=== PATIENT | male | born 1990 | race African-American/Black ===

== ENCOUNTER 2019-09-14 17:53 | Emergency (ER) | payer BC, OTHER ==
[~2019-09-14] VITALS: Ht 190.5 cm; Wt 65.8 kg
[2019-09-14 18:39] LABS: ALBUMIN 4.2 g/dL (3.4-5.0); CREATININE 1.2 mg/dL (0.7-1.3); POTASSIUM 3.5 mmol/L (3.5-5.1); TOTAL BILIRUBIN 0.3 mg/dL (<0.1-1.0); TOTAL PROTEIN 8.3 g/dL (6.4-8.2)
[2019-09-14 18:41] LABS: HEMATOCRIT 47.1 % (42.0-52.0); MCH 31.4 pg (26.0-34.0); MCHC 33.9 g/dL (28.0-37.0); MCV 92.6 fL (80.0-100.0); PLATELET COUNT 138 thou/uL (150-400); RBC 5.08 mil/uL (4.50-6.00); RDW 13.4 % (10.5-14.5); WBC 2.4 thou/uL (4.0-11.0)
[2019-09-14 18:45] LABS: CALCIUM 9.3 mg/dL (8.5-10.1)
[2019-09-14] MEDS ORDERED: ZOFRAN ODT4 MG DISSOLVE (18:52)
[2019-09-14 19:11] VITALS: BP 133/78
== END 2019-09-14 19:13 | disposition home or self-care (01) ==
LOC: ER 17:53
PROVIDERS: Nurse Practitioner
DX: J10.1 Influenza due to other identified influenza virus with other respiratory manifestations (principal); R11.2 Nausea with vomiting, unspecified

== ENCOUNTER 2020-03-06 01:53 | Emergency (ER) | payer BC, OTHER ==
[~2020-03-06] VITALS: Ht 190.5 cm; Wt 65.8 kg
[~2020-03-06 01:53] MED LIST: ZOFRAN ODT4 MG DISSOLVE
[2020-03-06] MEDS ORDERED: NORCO 5-325 TA1 EAC1 PO (02:44)
[2020-03-06 02:50] VITALS: BP 108/60
== END 2020-03-06 03:06 | disposition home or self-care (01) ==
LOC: ER 01:53
DX: S93.492A Sprain of other ligament of left ankle, initial encounter (principal); V00.131A Fall from skateboard, initial encounter; Y93.51 Activity, roller skating (inline) and skateboarding; Y92.89 Other specified places as the place of occurrence of the external cause; Y99.9 Unspecified external cause status

== ENCOUNTER 2020-03-09 21:48 | Emergency (ER) | payer BC, OTHER ==
[~2020-03-09] VITALS: Ht 190.5 cm; Wt 65.8 kg
[~2020-03-09 21:48] MED LIST changes: +NORCO 5-325 TA1 EAC1 PO
[2020-03-09 21:50] VITALS: BP 126/79
[2020-03-09] MEDS ORDERED: SENNA PLUS TAB1 EACH PO ×2 (22:16→22:44)
[2020-03-09] MEDS ORDERED: NORCO 5-325 TA1 EAC1 PO ×2 (22:16→22:17)
== END 2020-03-09 22:49 | disposition home or self-care (01) ==
LOC: ER 21:48
DX: S92.322A Displaced fracture of second metatarsal bone, left foot, initial encounter for closed fracture (principal); S92.332A Displaced fracture of third metatarsal bone, left foot, initial encounter for closed fracture; S92.342A Displaced fracture of fourth metatarsal bone, left foot, initial encounter for closed fracture; X58.XXXA Exposure to other specified factors, initial encounter; Y93.51 Activity, roller skating (inline) and skateboarding; Y92.89 Other specified places as the place of occurrence of the external cause; Y99.0 Civilian activity done for income or pay

== ENCOUNTER 2020-10-15 08:08 | Emergency (ER) | payer OTHER ==
[~2020-10-15] VITALS: Ht 190.5 cm; Wt 65.8 kg
[~2020-10-15 08:08] MED LIST changes: +SENNA PLUS TAB1 EACH PO
[2020-10-15 09:51] VITALS: BP 127/68
== END 2020-10-15 09:51 | disposition home or self-care (01) ==
LOC: ER 08:08
DX: S40.022A Contusion of left upper arm, initial encounter (principal); Y04.2XXA Assault by strike against or bumped into by another person, initial encounter; Y93.89 Activity, other specified; Y92.89 Other specified places as the place of occurrence of the external cause; Y99.8 Other external cause status